=== PATIENT | male | born 1960 | race Caucasian/White ===

== ENCOUNTER 2021-05-06 23:07 | Emergency (ER) | payer OTHER ==
[2021-05-07] MEDS ORDERED: KEFLEX250 MG PO (01:15)
[2021-05-07] MEDS ORDERED: NORCO 5-325 TA1 EACH PO ×2 (01:15→01:50)
== END 2021-05-07 01:54 | disposition home or self-care (01) ==
LOC: FER 23:07
DX: S50.01XA Contusion of right elbow, initial encounter (principal); L03.113 Cellulitis of right upper limb; F17.200 Nicotine dependence, unspecified, uncomplicated; W22.01XA Walked into wall, initial encounter; Z88.0 Allergy status to penicillin
CPT/HCPCS: 73080; 73090